=== PATIENT | female | born 1965 | race Two or more races ===

== ENCOUNTER 2017-02-14 10:51 | Inpatient (IN) | payer MEDICARE, MEDICAID ==
[~2017-02-14] VITALS: Ht 160 cm; Wt 75.4 kg
[2017-02-14] MEDS: LACOSAMIDE 50 MG TAB PO SCH ×2 (10:00→22:45)
[~2017-02-14 10:51] MED LIST: CARB300C2; CLON0.5T54; ESCI10TA; FOLI1TAB6; LACO150T; LEVE500T22
[2017-02-14] MEDS ORDERED: SODIUM CHLORIDE 0.9% 250 ML IV ONE (11:48)
[2017-02-14] MEDS ORDERED: MELO-85 PO (11:49)
[2017-02-14] MEDS ORDERED: ONDANSETRON HCL 4 MG/2 ML VIAL IV ONE (12:00)
[2017-02-14] MEDS ORDERED: MORPHINE SULFATE 4 MG/ML SYRG IV ONE (12:00)
[2017-02-14] MEDS ORDERED: NITROGLYCERIN 0.4 MG SL TAB SL PRN (12:15)
[2017-02-14] MEDS ORDERED: LORazepam 2MG/ML-1ML VIAL IV PRN (12:15)
[2017-02-14] MEDS ORDERED: ACETAMINOPHEN 500 MG TAB PO PRN (12:15)
[2017-02-14] MEDS ORDERED: LORazepam 0.5 MG TAB PO PRN (12:15)
[2017-02-14] MEDS ORDERED: TEMAZEPAM 15 MG CAP PO PRN (12:15)
[2017-02-14] MEDS ORDERED: MORPHINE SULF INJ 2 MG/ML SYRINGE 1ML IV PRN (12:15)
[2017-02-14] MEDS ORDERED: PROCHLORPERAZINE EDISYLATE 5 MG/ML 2ML VIAL IV PRN (12:15)
[2017-02-14 12:22] LABS: Basophils # (auto) 0 uL; Eosinophils # (auto) 0 uL; Eosinophils % (auto) 0.2 % (0.0-7.0); Hematocrit 35.6 % (36.0-46.0); Hemoglobin 11.4 g/dL (12.2-16.2); Lymphocytes # (auto) 0.7 uL; Lymphocytes % (auto) 5.8 % (10.0-50.0); Mean Corpuscular Hemoglobin 27.7 pg (28.0-32.0); Mean Corpuscular Hgb Conc. 31.9 g/dL (32.0-36.0); Mean Corpuscular Volume 86.7 fL (80.0-100.0); Mean Platelet Volume 8.3 fL (7.4-10.4); Monocytes # (auto) 0.6 uL; Monocytes % (auto) 4.5 % (0.0-12.0); Neutrophils # (auto) 11.5 uL; Neutrophils % (auto) 89.5 % (37.0-80.0); Platelet Count (auto) 355 10^3/uL (140-450); Red Cell Distribution Width 13.7 % (11.6-16.0); White Blood Cell 12.8 10^3/uL (4.4-10.8)
[2017-02-14 12:26] LABS: INR 1.01 (0.9-1.15); Partial Thromboplastin Time 25.9 sec (22.64-33.71); Prothrombin Time 10.9 sec (9.37-12.3)
[2017-02-14 12:30] LABS: Albumin 3.6 g/dL (3.4-5.0); BUN/Creatinine Ratio 15.5; Bilirubin, Total 0.2 mg/dL (0.2-1.0); Total Protein 7.4 g/dL (6.4-8.2)
[2017-02-14 12:31] LABS: Urine Bilirubin Negative (Negative); Urine Color Yellow (Yellow); Urine Glucose Normal (Normal); Urine Ketone Negative (Negative); Urine Mucus FEW (None Seen); Urine Nitrite Negative (Negative); Urine RBC 27 /hpf (0 - 4); Urine Squamous Epithelial Cell FEW /hpf (<5); Urine Urobilinogen Normal (Negative); Urine pH 5.5 (5.0-8.0)
[2017-02-14 12:34] LABS: Urine Blood 1+ /uL (Negative)
[2017-02-14] MEDS: HYDROcodone-ACET 5/325MG TAB PO PRN ×2 (13:15→22:49)
[2017-02-14] MEDS: SODIUM CHLORIDE 0.9% 1,000 ML IV SCH ×2 (13:22→22:58)
[2017-02-14] MEDS: MORPHINE SULF INJ 2 MG/ML SYRINGE 1ML IV PRN ×2 (13:35→18:34)
[2017-02-14 16:28] VITALS: BP 119/64
[2017-02-14 16:29] VITALS: BP 119/64
[2017-02-14 20:00] VITALS: BP 118/83
[2017-02-14] MEDS ORDERED: cefTRIAXone 1GM/50ML D5W 50 ML IV ONE (20:15)
[2017-02-14 22:00] VITALS: BP 129/74
[2017-02-14] MEDS ORDERED: PATIENTS OWN MEDICATION PO SCH ×2 (22:00)
[2017-02-14] MEDS: LEVETIRACETAM 500 MG TAB PO SCH (22:43)
[2017-02-14] MEDS: carBAMazepine 200 MG TAB PO SCH (22:44)
[2017-02-15] VITALS (7 sets, daily range): BP systolic 118–148; BP diastolic 62–77
[2017-02-15] MEDS: HYDROcodone-ACET 5/325MG TAB PO PRN ×3 (05:02→21:55)
[2017-02-15 06:44] LABS: Cholesterol 176 mg/dL (< 200); HDL Cholesterol 63 mg/dL (40-59); LDL Cholesterol 99 mg/dL (< 100); Triglycerides 115 mg/dL (< 150)
[2017-02-15] MEDS: SODIUM CHLORIDE 0.9% 1,000 ML IV SCH ×2 (08:11→17:57)
[2017-02-15] MEDS: CITALOPRAM HYDROBR 20 MG TAB PO SCH (09:23)
[2017-02-15] MEDS: FOLIC ACID 1 MG TAB PO SCH (09:23)
[2017-02-15] MEDS: LEVETIRACETAM 500 MG TAB PO SCH ×2 (09:23→21:54)
[2017-02-15] MEDS: cefTRIAXone 1GM/50ML D5W 50 ML IV SCH (09:23)
[2017-02-15] MEDS: carBAMazepine 200 MG TAB PO SCH ×2 (09:24→21:54)
[2017-02-15] MEDS: LACOSAMIDE 50 MG TAB PO SCH ×2 (09:31→21:54)
[2017-02-15] MEDS: MORPHINE SULF INJ 2 MG/ML SYRINGE 1ML IV PRN ×2 (09:38→20:07)
[2017-02-15] MEDS ORDERED: PATIENTS OWN MEDICATION PO SCH ×2 (10:00)
[2017-02-16] VITALS (7 sets, daily range): BP systolic 123–145; BP diastolic 55–78
[2017-02-16] MEDS: SODIUM CHLORIDE 0.9% 1,000 ML IV SCH ×2 (04:11→14:11)
[2017-02-16] MEDS: HYDROcodone-ACET 5/325MG TAB PO PRN ×2 (08:11→18:11)
[2017-02-16] MEDS: carBAMazepine 200 MG TAB PO SCH ×2 (09:34→21:26)
[2017-02-16] MEDS: LEVETIRACETAM 500 MG TAB PO SCH ×2 (09:34→21:27)
[2017-02-16] MEDS: FOLIC ACID 1 MG TAB PO SCH (09:34)
[2017-02-16] MEDS: LACOSAMIDE 50 MG TAB PO SCH ×2 (09:34→21:30)
[2017-02-16] MEDS: CITALOPRAM HYDROBR 20 MG TAB PO SCH (09:34)
[2017-02-16] MEDS: cefTRIAXone 1GM/50ML D5W 50 ML IV SCH (09:35)
[2017-02-16] MEDS ORDERED: CARB200T4 PO (12:54)
[2017-02-16] MEDS ORDERED: OME20T PO (12:57)
[2017-02-16] MEDS ORDERED: LEVE100020 PO (12:57)
[2017-02-16] MEDS ORDERED: MELO-86 PO (12:57)
[2017-02-16] MEDS ORDERED: ESCI20TA51 PO (12:58)
[2017-02-16] MEDS ORDERED: LACO150T PO (12:59)
[2017-02-16] MEDS: MORPHINE SULF INJ 2 MG/ML SYRINGE 1ML IV PRN ×2 (14:06→21:28)
[2017-02-16] MEDS: clonazePAM 0.5 MG TAB PO SCH (21:27)
[2017-02-17] MEDS: SODIUM CHLORIDE 0.9% 1,000 ML IV SCH ×3 (00:11→20:11)
[2017-02-17 04:56] VITALS: BP 125/66
[2017-02-17] MEDS: MORPHINE SULF INJ 2 MG/ML SYRINGE 1ML IV PRN ×3 (05:44→21:10)
[2017-02-17 08:00] VITALS: BP 147/85
[2017-02-17] MEDS ORDERED: TETRACAINE 1% INJ 2 ML VIAL IJ ONE (08:18)
[2017-02-17 08:33] VITALS: BP 147/85
[2017-02-17] MEDS: LEVETIRACETAM 500 MG TAB PO SCH ×2 (08:41→22:28)
[2017-02-17] MEDS: FOLIC ACID 1 MG TAB PO SCH (08:42)
[2017-02-17] MEDS: LACOSAMIDE 50 MG TAB PO SCH ×2 (08:42→22:28)
[2017-02-17] MEDS: cefTRIAXone 1GM/50ML D5W 50 ML IV SCH (08:42)
[2017-02-17] MEDS: carBAMazepine 200 MG TAB PO SCH ×2 (08:42→22:29)
[2017-02-17] MEDS: clonazePAM 0.5 MG TAB PO SCH ×2 (08:42→22:29)
[2017-02-17] MEDS: CITALOPRAM HYDROBR 20 MG TAB PO SCH (08:42)
[2017-02-17] MEDS ORDERED: PROPOFOL 10 MG/ML 20 ML IV ONE (08:53)
[2017-02-17] MEDS ORDERED: SODIUM CHLORIDE LOCK 20 ML ONE (08:53)
[2017-02-17] MEDS ORDERED: fentaNYL CITRATE 100 MCG/2 ML VL ONE (08:53)
[2017-02-17] MEDS ORDERED: MIDAZOLAM HCL 1MG/1ML-2 ML VIAL ONE (08:53)
[2017-02-17] MEDS ORDERED: ONDANSETRON HCL 4 MG/2 ML VIAL ONE (08:53)
[2017-02-17] MEDS ORDERED: MORPHINE SULF(PF) 0.5MG/ML 10ML VIAL ONE (08:53)
[2017-02-17] MEDS ORDERED: ePHEDrine SULFATE 50 MG/ML AMP ONE (08:53)
[2017-02-17 09:12] LABS: Basophils # (auto) 0 uL; Basophils % (auto) 0.4 % (0.0-2.0); Eosinophils # (auto) 0.3 uL; Eosinophils % (auto) 5.4 % (0.0-7.0); Hematocrit 27.8 % (36.0-46.0); Lymphocytes % (auto) 16.5 % (10.0-50.0); Mean Corpuscular Hemoglobin 27.9 pg (28.0-32.0); Mean Corpuscular Hgb Conc. 32.5 g/dL (32.0-36.0); Mean Corpuscular Volume 85.7 fL (80.0-100.0); Mean Platelet Volume 7.3 fL (7.4-10.4); Monocytes # (auto) 0.5 uL; Monocytes % (auto) 8.2 % (0.0-12.0); Neutrophils # (auto) 4.2 uL; Neutrophils % (auto) 69.5 % (37.0-80.0); Platelet Count (auto) 293 10^3/uL (140-450)
[2017-02-17] MEDS ORDERED: BUPIVACAINE 0.75% INJ 10ML MPV SDV IJ ONE ×2 (09:22→11:10)
[2017-02-17] MEDS ORDERED: ceFAZolin 1GM VL ONE (09:22)
[2017-02-17 09:31] LABS: INR 1.02 (0.9-1.15); Partial Thromboplastin Time 28.4 sec (22.64-33.71)
[2017-02-17 09:42] LABS: Albumin 2.6 g/dL (3.4-5.0); BUN/Creatinine Ratio 11.8; Bilirubin, Total 0.2 mg/dL (0.2-1.0); Calcium 7.7 mg/dL (8.5-10.1); Potassium 3.8 mmol/L (3.5-5.1); Total Protein 5.7 g/dL (6.4-8.2)
[2017-02-17] MEDS ORDERED: NEOMYCIN-BACITRACIN-POLYM 15GM TOP OINT TOP ONE (10:55)
[2017-02-17 16:38] VITALS: BP 140/76
[2017-02-17] MEDS: HYDROcodone-ACET 5/325MG TAB PO PRN ×2 (17:10→23:42)
[2017-02-17] MEDS ORDERED: MORPHINE SULF INJ 2 MG/ML SYRINGE 1ML IV ONE (17:15)
[2017-02-17 20:00] VITALS: BP 126/72
[2017-02-17 22:00] VITALS: BP 126/70
[2017-02-18] MEDS: MORPHINE SULF INJ 2 MG/ML SYRINGE 1ML IV PRN ×2 (02:49→08:31)
[2017-02-18 05:00] VITALS: BP 97/63
[2017-02-18] MEDS: HYDROcodone-ACET 5/325MG TAB PO PRN ×2 (06:07→11:55)
[2017-02-18] MEDS: SODIUM CHLORIDE 0.9% 1,000 ML IV SCH (06:08)
[2017-02-18 06:46] LABS: Basophils # (auto) 0 uL; Basophils % (auto) 0.1 % (0.0-2.0); Eosinophils # (auto) 0.2 uL; Eosinophils % (auto) 1.7 % (0.0-7.0); Hematocrit 30.6 % (36.0-46.0); Hemoglobin 9.9 g/dL (12.2-16.2); Lymphocytes # (auto) 1.1 uL; Lymphocytes % (auto) 11.7 % (10.0-50.0); Mean Corpuscular Hemoglobin 28.1 pg (28.0-32.0); Mean Corpuscular Hgb Conc. 32.3 g/dL (32.0-36.0); Mean Corpuscular Volume 87.1 fL (80.0-100.0); Mean Platelet Volume 7.8 fL (7.4-10.4); Monocytes # (auto) 0.8 uL; Monocytes % (auto) 8.8 % (0.0-12.0); Neutrophils # (auto) 7.1 uL; Neutrophils % (auto) 77.7 % (37.0-80.0); Platelet Count (auto) 309 10^3/uL (140-450); Red Cell Distribution Width 13.5 % (11.6-16.0); White Blood Cell 9.1 10^3/uL (4.4-10.8)
[2017-02-18 06:52] LABS: BUN/Creatinine Ratio 8.7; Calcium 8.8 mg/dL (8.5-10.1); Potassium 4.2 mmol/L (3.5-5.1)
[2017-02-18] MEDS: cefTRIAXone 1GM/50ML D5W 50 ML IV SCH (08:32)
[2017-02-18 09:00] VITALS: BP 139/73
[2017-02-18] MEDS: FOLIC ACID 1 MG TAB PO SCH (10:52)
[2017-02-18] MEDS: clonazePAM 0.5 MG TAB PO SCH (10:52)
[2017-02-18] MEDS: carBAMazepine 200 MG TAB PO SCH (10:52)
[2017-02-18] MEDS: LEVETIRACETAM 500 MG TAB PO SCH (10:52)
[2017-02-18] MEDS: CITALOPRAM HYDROBR 20 MG TAB PO SCH (10:52)
[2017-02-18] MEDS: LACOSAMIDE 50 MG TAB PO SCH (11:06)
[2017-02-18 13:00] VITALS: BP 147/78
== END 2017-02-18 15:40 | disposition short-term general hospital (02) | DRG 853 ==
LOC: EDUNIT# 10:51 → ER 10:51 → EDBD 10:51 → TELE 10:52 → TELE-WESTW 15:44
PROVIDERS: ADMIT Internal Medicine; ATTEND Family Medicine
PROC: 0HRMXK3 Replacement of Right Foot Skin with Nonautologous Tissue Substitute, Full Thickness, External Approach (ICD-10-PCS; 2017-02-17)
PROC: 0QSJ04Z Reposition Right Fibula with Internal Fixation Device, Open Approach (ICD-10-PCS; 2017-02-17)
PROC: 0QSG04Z Reposition Right Tibia with Internal Fixation Device, Open Approach (ICD-10-PCS; principal; 2017-02-17 09:50)
DX: A41.9 Sepsis, unspecified organism (principal); N17.0 Acute kidney failure with tubular necrosis; N39.0 Urinary tract infection, site not specified; I50.30 Unspecified diastolic (congestive) heart failure; N18.2 Chronic kidney disease, stage 2 (mild); S82.841A Displaced bimalleolar fracture of right lower leg, initial encounter for closed fracture; W19.XXXA Unspecified fall, initial encounter; S93.04XA Dislocation of right ankle joint, initial encounter; G40.909 Epilepsy, unspecified, not intractable, without status epilepticus; Y93.89 Activity, other specified; Y92.89 Other specified places as the place of occurrence of the external cause; Z83.3 Family history of diabetes mellitus
CPT/HCPCS: 29515; 36415; 71010; 73600; 76000; 80048; 80053; 80061; 80156; 80307; 81001; 81025; 85025; 85610; 85652; 85730; 87086; 93005; 93306; 94761; 96361; 96374; 96375; J0690; J0696; J2250; J2405; J2704; J3490